=== PATIENT | female | born 1950 | race Caucasian/White ===

== ENCOUNTER → 2019-07-23 14:29 | Outpatient (CLI) | payer MEDICARE, SELFPAY ==
--- NOTE | ~2019-07-23 | CT_ITS ---
EXAMINATION: CT sinus wo con DATE: 07/23/2019 14:44 INDICATION: Chronic sinusitis TECHNIQUE: Computed tomography (CT) of the paranasal sinuses was performed without intravenous contra st. The dose-length product was 276.47 mGy-cm. Iterative reconstruction technique was employed. COMPARISON: None FINDINGS: There is mild mucosal thickening of the right maxillary sinus. No air-fluid levels. No sign ificant mucosal thickening. Mastoids are pneumatized. No significant mucoperiosteal reaction. Ostiome atal units are patent. No significant nasal septal deviation. IMPRESSION: 1. Mild right maxillary mucosal thickening. Reviewed, dictated and finalized at location B. NEERING [employer]ER
== END ==
PROVIDERS: PCP Nurse Practitioner; Visit Provider Allergy & Immunology
DX: J32.9 Chronic sinusitis, unspecified (principal)
CPT/HCPCS: 70486